=== PATIENT | male | born 2000 | race Caucasian/White ===

== ENCOUNTER 2021-10-18 14:56 | Emergency (ER) | payer BC, SELFPAY ==
[2021-10-18 15:02] VITALS: PULSE 98; RESP 18; O2SAT 98; BMI 38.4
[2021-10-18 15:10] VITALS: BP 129/77; PULSE 81; RESP 18; TEMP 36.7; O2SAT 98; BMI 38.4
[2021-10-18 15:43] LABS: UTC Strep Screen (Rapid) Negative (Negative)
[2021-10-18 15:44] LABS: UTC Influenza A Antigen Negative (Negative); UTC Influenza B Antigen Negative (Negative)
--- NOTE | 2021-10-18 15:54 | HMH.EDUTC ---
[facility] [place] [facility] [place] Clinical Impression: Sinusitis Disposition: Home, Self-Care Condition on Discharge: Good Instructions: Sinusitis, DI for Sinusitis, DI for COVID-19 (Suspected or Confirmed ) Additional Instructions: *Monitor Temp, Over the counter Motrin or Tylenol as directed/as needed Tylenol every 4 hours and Motrin every 6 hours (as long as your family doctor has told you that you can take it) for fever or pain. and straight to ER if unable to lower temp less than 101.0 after medication given *Warm salt water gargles may help to soothe the throat *Throat Lozenges *Warm fluids like tea with honey may help to soothe the throat *Sleep elevated *Humidifier/Vaporizer Bromfed may cause drowsiness. Know how it effects you (your child) before driving, caring for small child, or sending your child to school. Not other antihistamines/allergy medications while taking bromfed Your throat swab was sent for culture. Those results are typically sent to your primary care. Be sure to follow up in 2-3 days with your family doctor/primary care physician if no improvement so they can review those result and treat if necessary. If you don?t have a primary care doctor, I recommend you get one but in the mean time, you will have to return to a walk in clinic Follow up IMMEDIATELY for new or worsening symptoms or no Noticeable improvement over the next 48-72 hours. 911 for difficulty breathing or swallowing Prescriptions: Brompheniramine/Pseudoephed/Dm [Bromfed Dm Cough Syrup] 5 - 10 ml PO Q46H PRN #200 ml PRN Reason: Cough Transmission Status: Pending to [facility] methylPREDNISolone [Medrol 4mg tab] 4 mg PO DIRECTED #21 tab Transmission Status: Pending to [facility] Azithromycin [Z-Brandan 250mg Tab] 250 mg PO DIRECTED #6 tab Transmission Status: Pending to [facility] Forms: Work/School Release Time of Disposition: 16:01 Medical Decision Making - Antoni Inquiry Pt receiving controlled substance: No Antoni was queried for this patient: No Vital Signs: 10/18/21 15:02 10/18/21 15:10 Temperature 98.1 F Temperature Source Oral Pulse Rate [Left Radial] 98 H 81 Respiratory Rate 18 18 Blood Pressure [Right Arm] 129/77 Blood Pressure Mean [Right Arm] 94 Blood Pressure Source [Right Arm] Automatic Cuff Blood Pressure Position [Right Arm] Sitting 02 Sat by Pulse Oximetry 98 98 Oxygen Delivery Method Room Air Room Air - Lab Data Lab results reviewed: Yes: I reviewed the patient's lab results. Lab Results 10/18/21 15:36: Influenza Type A Ag Negative, Influenza Type B Ag Negative 10/18/21 15:36: Strep Scn Rapid Clinic Negative Orders (Tests/Meds): ORDERS Category Date Time Status Strep Screen Confirmation Stat Micro 10/18/21 15:36 Received Medical Decision Narrative: Patient was tested for COVID at [facility] HPI - General Stated complaint: sore throat,cough Time Seen by Provider: 10/18/21 15:54 Mode of Arrival: Ambulatory Source of Information: Patient Limitations: No Limitations Description of Symptoms (Recalled from Triage Doc. by RN): PATIENT C/O COUGH, HEADACHE AND FATIGUE X 3 DAYS HEENT Symptoms (Recalled from RN notes): Yes Resp Symptoms (Recalled from RN notes): Yes Skin Symptoms (Recalled from RN notes): No MS Symptoms (Recalled from RN notes): No Functional Status (Recalled from RN notes): WNL - History of Present Illness Provider Complaint: Patient states that he has been having sinus congestion and pressure for close to a week States that for the last few days he has been having body aches, headache cough and fatigue States that he hasnt been around anyone that he is aware of with COVID but was tested earlier at [facility] and got tested for COVID but wanted to come in here and get checked for strep, flu and sinus infection - Related Data Previous Rx's Medication Instructions Recorded Azithromycin [Z-Brandan 250mg Tab] 250 mg PO DIRECTED #6
[2021-10-18 16:06] VITALS: BP 129/77; PULSE 81; RESP 18; TEMP 36.7; O2SAT 98
== END 2021-10-18 16:10 | disposition home or self-care (01) ==
LOC: UTC 16:11
PROVIDERS: Emergency Provider Nurse Practitioner
DX: J01.90 Acute sinusitis, unspecified (principal)
CPT/HCPCS: 87804; 87880; 99203; G0463